=== PATIENT | female | born 1950 | race Caucasian/White ===

== ENCOUNTER 2018-09-24 12:24 | Day surgery (SDC) | payer MEDICARE ==
[~2018-09-24] VITALS: Ht 154.9 cm; Wt 70.0 kg
[~2018-09-24 12:24] MED LIST: LIDOCAINE-MPF 1%, 5ML ONE
[2018-09-24 13:02] VITALS: BP 143/59
[2018-09-24] MEDS ORDERED: SODIUM CHLORIDE 0.9% 1,000 ML IV SCH (13:09)
[2018-09-24] MEDS ORDERED: PLEASE ENTER ALLERGIES MC SCH (13:30)
== END 2018-09-24 18:15 | disposition home or self-care (01) ==
LOC: OUT 12:24 → EDSTATUS 12:30 → OUT 18:15
PROVIDERS: ATTEND Nurse Practitioner Family
DX: M47.812 Spondylosis without myelopathy or radiculopathy, cervical region (principal); M48.02 Spinal stenosis, cervical region; E78.00 Pure hypercholesterolemia, unspecified; F41.9 Anxiety disorder, unspecified; F32.9 Major depressive disorder, single episode, unspecified; Z88.1 Allergy status to other antibiotic agents; Z95.0 Presence of cardiac pacemaker; Z86.19 Personal history of other infectious and parasitic diseases
CPT/HCPCS: 62284; 72050; 72126; 73030; Q9965